=== PATIENT | female | born 1985 | race Caucasian/White ===

== ENCOUNTER 2020-08-07 07:44 | Emergency (ER) | payer OTHER, SELFPAY ==
[2020-08-07 07:45] VITALS: BP 122/78; PULSE 103; RESP 20; TEMP 36.6; O2SAT 98; BMI 25.5
--- NOTE | 2020-08-07 08:03 | ED.DCSUM_ITS ---
History of Present Illness Chief Complaint: Headache Informant: Patient Onset: Month(s) Context: Gradual Timing: Continuous, Waxes and wanes Quality: Throbbing Location: Left side Current Severity: Severe Maximum Severity: Severe Associated Symptoms: Nausea, Sinus Pressure, Photophobia, - - Sonophobia. Negative for: Fever, Vomiting, Sore Throat, Numbness, Tingling, Preceding Aura, Visual Changes, Blurred Vision, Visual Loss Injury: - - History of trauma Narrative: Patient is a 35-year-old woman who was treated for sinusitis. She initially was placed on Augmentin and just completed a 3-week course of levofloxacin. She had a CT of the head/sinuses in May which revealed minimal thickening of the sphenoid, ethmoid and maxillary sinuses. There is no air-fluid levels noted. The headache is not positional. She states she initially had fevers. She has not had fevers or chills in greater than a month. She denies history of migraine headaches. Her maternal grandmother had migraine headaches. She denies double vision, blurred vision or loss of vision. She denies ringing in ears or decreased hearing. She denies sore throat. She denies neck pain or stiffness. She does report nausea without vomiting or diarrhea. She denies myalgias or arthralgias. She denies trouble with balance. She denies paresthesia, anesthesia or motor weakness upper or lower extremity. Prior similar symptoms: Yes Recent Illness/Hospitalization: Yes - Past Medical History (1) No significant past medical history Status: Acute Past Medical History - Allergies and Home Meds Allergies/Adverse Reactions: Allergies latex Allergy (Verified 08/07/20 07:44) Swelling Primary Care Physician: Murray Chisholm MD [Primary Care Provider] - Prior records reviewed: Yes Surgical History: noncontributory Lives: Spouse/ Significant Other Smoking Status: Former smoker Alcohol: Rare Drugs: None Review of Systems General: Reports: Malaise. Denies: Chills, Fever, Subjective, Sweats Eyes: Reports: - - Reports photophobia. Denies: Visual changes - bilaterally, Blurred Vision - bilaterally, Diplopia ENT: Reports: - - Reports sonophobia. Denies: Bilateral ear pain, Rhinorrhea, Sore throat Cardiovascular: Denies: Chest pain, Palpitations Respiratory: Denies: Dyspnea, Cough, Dyspnea on exertion Gastrointestinal: Reports: Nausea. Denies: Abdominal pain, Vomiting, Diarrhea, Constipation, Melena, Hematochezia, -, - Genitourinary: Denies: Dysuria, Hematuria, Frequency Musculoskeletal: Denies: Myalgias, Arthralgias, Neck pain, Back pain, Swelling, Extremity Pain, -, - Skin: Denies: Rash, Wounds Neurological: Reports: Headache. Denies: Parasthesia, Numbness Endocrine: Denies: Polyuria, Polydipsia Physical Exam Vital Signs/Narrative: Vital Signs Temp Pulse Resp BP Pulse Ox 08/07/20 07:45 97.8 F 103 H 20 H 122/78 H 98 Inital Vital Signs reviewed: Yes General: Well nourished, Well developed Head: NC, AT. Negative for: Trauma, Tenderness, Temporary Artery Tenderness, Vesicular Rash, Sinus Tenderness Eyes: Perrl, EOMI, - - Is no APD. Fundi are unremarkable.. Negative for: Pale conjunctiva, Scleral icterus ENT: Moist mucous membranes, No rhinorrhea, TM's clear. Negative for: Sinus tenderness Neck: Supple, No Lymphadenopathy, No JVD, Nontender, No Meningismus. Negative for: Paraspinal Tenderness Cardiovascular: Regular rate, Regular rhythm, No murmurs, Normal S1, Normal S2 Respiratory: No distress, CTA bilaterally, Chest nontender Abdomen: Soft, Nontender, Nondistended, Normal bowel sounds Extremities: Nontender, No edema Skin: Normal color, No rash, No Trauma. Negative for: Cyanosis, Diaphoresis, Jaundice Neuro: Alert, Oriented x3, Cranial nerves II-XII grossly intact, Normal Strength, Normal Sensation, Normal DTR, Normal Gait Psychological: Normal affect, Normal Mood Diagnostic/Tx/Re-eval - Medical Decision Making With complaint of throbbing unilateral headache with sonophobia, photophobia and nausea suspect patient has migraine/vascular headache. Reviewed report of CAT scan. The CAT scan is essentially nondiagnostic. She has no tenderness over the frontal, ethmoid or maxillary sinuses. Patient was treated with IV Toradol, Benadryl and Reglan. Since she had a recent CAT scan there is no indication for repeat CAT scan. Patient was reassessed her headache has essentially resolved. She does know Dr. Cabezas. Recommended follow-up with Dr. Cabezas. 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 ED Disposition - Plan for ED Patient: Disposition: Home or Assisted Living Diagnosis: Headache, migraine, intractable, with status migrainosus Instructions: ED, Migraine (Classical) Prescriptions: Metoclopramide [Reglan] 10 mg PO UD PRN #10 tab PRN Reason: Headache Transmission Status: Pending to [facility]/pharmacy #[id number] Referrals: Murray Chisholm MD [Primary Care Provider] - Additional Instructions: Take either 4 ibuprofen every 8 hours for the next 24 to 48 hours or 2 Aleve every 12 hours for the next 24 to 48 hours. If you develop a recurrence of the throbbing headache with light sensitivity and sound sensitivity take 1 Reglan tablet. Also take 4 Advil tablets and 125 mg Benadryl tablet.
[2020-08-07] MEDS: Ketorolac 15 MG/ML Vial IV (08:22)
[2020-08-07] MEDS: DiphenhydrAMINE 50 MG/ML Syringe 25 MG IV (08:22)
[2020-08-07] MEDS: Metoclopramide 10 MG/2 ML Vial IV (08:22)
[2020-08-07 09:34] VITALS: BP 121/63; PULSE 52; RESP 16; O2SAT 97
== END 2020-08-07 09:34 | disposition home or self-care (01) ==
PROVIDERS: Emergency Provider Emergency Medicine; PCP Family Medicine
DX: G43.911 Migraine, unspecified, intractable, with status migrainosus (principal); Z87.891 Personal history of nicotine dependence
CPT/HCPCS: 96374; 96375; 99283; A4216

== ENCOUNTER 2020-09-12 17:12 | Emergency (ER) | payer OTHER, SELFPAY ==
[2020-09-12] VITALS (9 sets, daily range): BP systolic 110–137; BP diastolic 69–93; PULSE 79–116; RESP 14–18; TEMP 36.8–36.9; O2SAT 98–100; BMI 26.3; BMI 27.5
--- NOTE | 2020-09-12 17:14 | ED.RN ---
pt presents to triage with s/o. S/O states pt can't speak and has left sided facial droop. RN ask pt name and birthday and pt answers appropriately. Pt also has negative [place] scale for RN. Pt states she has had migraines daily for the last couple months without any prescription medications for relief. RN begins to triage pt and patient is unable to give correct SSN and starts having s/o answer questions for her. RN walked pt back to exam room. Dr Olivera notified at this time of patient's symptoms.
--- NOTE | 2020-09-12 17:25 | ED.RN ---
PROVIDER INFORMED NO NEW ORDERS GIVEN.
--- NOTE | 2020-09-12 17:38 | EKG12_ITS ---
Test Reason : STROKE Blood Pressure : / mmHG Vent. Rate : 107 BPM Atrial Rate : 107 BPM P-R Int : 140 ms QRS Dur : 082 ms QT Int : 336 ms P-R-T Axes : 067 068 034 degrees QTc Int : 448 ms Sinus tachycardia Otherwise normal ECG Confirmed by CLAUDETTE DYKES, BRIA ([id number]), editor & co founder HUMBERTO PHILIP ([id number]) on 09/14/2020 8:16:44 AM Referred By: DIPTI Confirmed By:BRET WILKINS MD
--- NOTE | 2020-09-12 17:39 | CT_ITS ---
We are attempting to reach an attending provider to discuss findings. An addendum with communication details will be sent when the communication is complete. EXAMINATION : Head CT w/out contrast HISTORY : Stroke COMPARISON : None. TECHNIQUE : Multiple contiguous axial images were obtained from the skull base to the vertex without intravenous contrast. A radiation dose optimization technique was used for this scan. FINDINGS : The ventricles and sulci are normal in size. There is no evidence for acute intracranial hemorrhage, mass effect, or midline shift. There is no extra-axial fluid collection. There is normal manuel-white differentiation, without CT evidence of acute ischemia or infarct. The skull base and calvarium are unremarkable. The orbits are unremarkable. The paranasal sinuses are clear. The mastoid air cells are well-aerated. The soft tissues are unremarkable. CT/STROKE Brain/Head without Cont IMPRESSION: No acute intracranial abnormality. Electronically Signed: Rhys Ralph MD at 17:54 EDT Tel , Service support ,
--- NOTE | 2020-09-12 17:39 | NURSING ---
[id number] STROKE ALERT CALLED
--- NOTE | 2020-09-12 17:40 | ED.RN ---
PT ANSWERED THIS RN'S QUESTION CLEARLY AND APPROPRIATE, HOWEVER WHEN ASKED TO REPEAT NO IF AND'S OR BUTS, FIFTY FIFTY, MAMA, TIP TOP, HUCKLEBERRY, BASEBALL PT UNABLE TO REPEAT SOME OF THESE WORD. PT MUMBLES, SLURS AND SAYS THE WRONG WORDS. TIME FRAME OF ON SET CONFUSING AND UNCLEAR.
--- NOTE | 2020-09-12 17:41 | NURSING ---
NO OLD EKGS
--- NOTE | 2020-09-12 17:43 | CM.ED ---
Social Work Responding to stroke alert. Patient spouse present. Support provided. Patient has a three year old daughter that is currently in a safe place per patient spouse. Will continue to follow as needed. Myra LATHAM, TISH
--- NOTE | 2020-09-12 17:45 | NURSING ---
[id number] STROKE ALERT CALLED
[2020-09-12 17:53] LABS: Absolute Lymphocyte Count 2.06 X10^3/uL (0.83-4.51); Absolute Neutrophil Count 6.1 X10^3/uL (2.0-7.7); Basophil# 0.05 X10^3/uL; Basophil% 0.5 % (0-1); Eosinophil# 0.25 X10^3/uL; Eosinophils% 2.7 % (0-5); Hematocrit 40.7 % (37-47); Hemoglobin 13.9 g/dL (12.0-15.0); Lymphocyte # 2.06 X10^3/ul (0.83-4.51); Mean Corp Hgb Conc 34.2 g/dL (32-36); Mean Corpuscular Hgb 30.7 pg (27.0-32.0); Mean Corpuscular Volume 89.8 fL (81-99); Mean Platelet Vol. 8.6 fl (6.2-12.0); Monocyte# 0.86 X10^3/uL; Monocyte% 9.2 % (0-10); NRBC Flagged by Analyzer 0 % (0-5); Neutrophil # 6.11 X10^3/uL (2.7-7.7); Neutrophil % 65.3 % (47-70); Platelet Count 304 K/mm3 (150-450); RBC Distribution Width CV 12.2 % (11.6-14.6); RBC Distribution Width SD 40.3 fl (35.1-43.9); Red Blood Count 4.53 M/mm3 (4.2-5.4); White Blood Count 9.4 K/mm3 (4.4-11.0)
[2020-09-12 18:08] LABS: Anion Gap 8 (5-15); BUN 14 mg/dL (7-18); BUN/Creat Ratio 14.5 RATIO (10-20); Calcium,Total 9.2 mg/dL (8.5-10.1); Chloride 102 mmol/L (98-107); Creatinine, Serum 0.96 mg/dL (0.55-1.02); EST Glomerular Filtration Rate 70 mL/min (>60); Est Glom Filt Rate - Afr Amer 85 mL/min (>60); Glucose 104 mg/dL (74-106); Potassium 3.3 mmol/L (3.5-5.1); Sodium Level 136 mmol/L (136-145)
--- NOTE | 2020-09-12 18:10 | RAD_ITS ---
STUDY: X-RAY CHEST REASON FOR EXAM: Female, 35 years old. Neuro deficit, acute, stroke suspected TECHNIQUE: AP portable COMPARISON: 02/03/2014 FINDINGS: The lungs are clear and expanded. There is no demonstrated pleural abnormality. Normal size heart. Normal mediastinum and kenji. Normal visualized pulmonary arteries. Normal visualized aortic arch and descending thoracic aorta. Normal visualized thoracic spine. Normal visualized ribs, clavicles, and shoulders. There is no demonstrated abnormality of the visualized soft tissue structures of the upper abdomen. No change since prior exam RAD/Chest 1 View IMPRESSION: Normal x-ray examination of the chest. Electronically Signed: Sky Thacker MD at 18:27 EDT , Service support ,
[2020-09-12 18:11] LABS: Prothrombin Time (Protime)PT. 12.5 SECONDS (11.7-14.9)
[2020-09-12 18:12] LABS: Partial Thromboplast Time 25.2 Seconds (24.1-36.2)
[2020-09-12 18:16] LABS: Bedside Glucose 95 mg/dL (70-110)
[2020-09-12 18:37] LABS: Thyroid Stim Hormone (TSH) 1.32 uIU/mL (0.358-3.74)
--- NOTE | 2020-09-12 19:14 | PCM.HP.STD ---
History of Present Illness Date of Admission: 09/12/20 Chief Complaint: Migraines, aphasia, LUE paresthesias, dizziness. The patient is a 35 y/o F w/ PMHx: Allergic Rhinitis, Asthma who presents to the [facility] ED on 09/12/20 with history of frequent onset of migraines (generalized headache), over the last month although not upon current presentation in addition to intermittent fevers subjectively without checking her temperature with onset of expressive aphasia as well as left upper extremity paresthesias 15:30 sudden onset symptoms with paresthesias and aphasia versus dysarthria (can speak in full sentences but occasionally uses the wrong words or choppy speech) with resolved paresthesias, LIZAMA but ongoing speech alterations. Check COVID no neck stiffness or meningismus Migraines, aphasia, LUE paresthesias, dizziness. Work-up in the ED included T 98.4, heart rate initially 116, BP 135/69, respiratory rate 16, on her percent on room air, CBC with WC 9.4, hemoglobin 13.9, platelet 304 without marked shift, unremarkable coags, BMP with potassium 3.3 otherwise not marked appearing, troponin less than 0.015, TSH 1.32, chest x-ray with no acute cardiopulmonary findings, CT of the brain with no acute intracranial abnormality, EKG []. Patient symptoms telemetry stroke call with [facility] performed with concern for possible meningitis, tumor or possibly complex migraine with recommended following recent noted work-up above admission with MRI of the brain as well as MRA of the head neck as well as LP. New onset migraines, expressive aphasia, left upper extremity paresthesias with fever concerning for possible meningitis (lower suspicion), tumor or complex migraine: MRI brain with and without as well as MRA neck and LP If onset fevers during admission would initiate rocephin 2 g IV every 12 as well as vancomycin 50 mg/kg IV every 12 with request to infectious disease pending lumbar puncture results. Past Medical History Allergies latex Allergy (Verified 09/12/20 17:25) Swelling Home Medications: Ambulatory Orders Medication Instructions Recorded Albuterol Inhaler [Ventolin Hfa] 1 - 2 puff INHALATION Q4H PRN PRN 10/15/13 Fexofenadine HCl [Krissy Allergy] 180 mg PO PRN PRN 01/28/17 Fluticasone 0.05% [Flonase Nasal 1 spray NASAL DAILY 01/28/17 [place]] Surgical History: noncontributory Smoking Status: Never smoker - Physical Exam Vitals/I&O's: Vital Signs Temp Pulse Resp BP Pulse Ox 98.3 F 103 H 16 110/77 99 09/12/20 17:31 09/12/20 18:30 09/12/20 18:30 09/12/20 18:30 09/12/20 18:30 Oxygen Delivery Method Room Air Weight: 165 lb 9.074 oz Body Mass Index (BMI) 27.5 Finger Stick Blood Glucose 95 Laboratory Results 09/12/20 17:33: WBC 9.4, RBC 4.53, Hgb 13.9, Hct 40.7, MCV 89.8, MCH 30.7, MCHC 34.2, RDW Std Deviation 40.3, RDW Coeff of Ziggy 12.2, Plt Count 304, MPV 8.6, Immature Gran % (Auto) 0.300, Neut % (Auto) 65.3, Lymph % (Auto) 22.0, [place] % (Auto) 9.2, Eos % (Auto) 2.7, Baso % (Auto) 0.5, Absolute Neuts (auto) 6.1, Absolute Lymphs (auto) 2.06, Nucleated RBC % 0 09/12/20 17:33: PT 12.5, INR 1.0, APTT 25.2 09/12/20 17:33: Sodium 136, Potassium 3.3 L, Chloride 102, Carbon Dioxide 26.0, Anion Gap 8, BUN 14, Creatinine 0.96, Estim Creat Clear Calc 74.30, Est GFR (MDRD) Af Amer 85, Est GFR (MDRD) Non-Af 70, BUN/Creatinine Ratio 14.5, Glucose 104, Calcium 9.2, Troponin I < 0.015 09/12/20 17:33: TSH 1.32 09/12/20 17:55: POC Glucose 95 Current Medications Labetalol HCl (Labetalol (Prefilled) 20 Mg/4 Ml) 20 mg IV X1 PRN PRN Reason: BLOOD PRESSURE Assessment/Plan All Active Problems No significant past medical history (Acute) delivery, delivered, current hospitalization (Acute)
--- NOTE | 2020-09-12 19:38 | ED.VIS.STROK ---
History of Present Illness Chief Complaint: Neuro S/Sx Narrative: Patient presenting for evaluation secondary to difficulty speaking and numbness. Patient is otherwise healthy, she has a recent history of developing intermittent headaches. She states that these headaches will come and go over the course of the last month or so. She states that intermittently they have been associated with neurologic signs and symptoms. She states that they occasionally will be associated with feelings of numbness. Patient states that however today at about 1530 she had an onset of 1 of these headaches and was associated with difficulty speaking. Patient significant other corroborates this, and states that her speech is not normal. Patient states that the headache is generalized was not thunderclap. Patient reports some shopping is in her speech and word finding difficulties occasionally. She also states that she has some numbness to the right side of her face and her right arm. She denies any weakness. She denies visual field cuts. Review of systems otherwise negative. Past Medical History - Allergies and Home Meds Allergies/Adverse Reactions: Allergies latex Allergy (Verified 09/12/20 17:25) Swelling Primary Care Physician: Murray Chisholm MD [Primary Care Provider] - Past Medical History: None Surgical History: noncontributory Lives: Spouse/ Significant Other Smoking Status: Never smoker Alcohol: None Drugs: None Review of Systems All systems negative except as indicated General: Denies: Chills, Fever, Sweats Eyes: Denies: Visual changes - bilaterally, Diplopia ENT: Denies: Rhinorrhea, Sore throat Cardiovascular: Denies: Chest pain, Palpitations Respiratory: Denies: Dyspnea, Cough, Dyspnea on exertion Gastrointestinal: Denies: Abdominal pain, Nausea, Vomiting, Diarrhea, Melena, Hematochezia Genitourinary: Denies: Dysuria, Hematuria, Frequency Musculoskeletal: Denies: Back pain, Extremity Pain Skin: Denies: Rash, Wounds Neurological: Reports: Parasthesia, - - Speech difficulty STROKE Vital Signs/Narrative: Vital Signs Temp Pulse Resp BP Pulse Ox 09/12/20 18:30 103 H 16 110/77 99 09/12/20 18:07 79 18 133/71 H 98 09/12/20 17:47 102 H 17 122/81 H 100 09/12/20 17:31 98.3 F 09/12/20 17:18 98.4 F 116 H 16 135/69 H 100 Inital Vital Signs reviewed: Yes General: Well nourished, Well developed Head: Normocephalic, Atraumatic Eyes: Perrl, EOMI ENT: Moist mucous membranes, No rhinorrhea Neck: Supple, Nontender Cardiovascular: Regular rate, Regular rhythm, No murmurs Respiratory: No distress, CTA bilaterally, Chest nontender Abdomen: Soft, Nontender, Nondistended, Normal bowel sounds Back: Nontender, Normal Inspection Extremities: Nontender, No edema Skin: Normal color, No rash Neurological: Alert, Oriented x3, Cranial nerves II-XII grossly intact, Normal Strength, Normal Sensation, - - Patient's speech is in complete sentences, she occasionally says the wrong words, and it does seem mildly fragmented. I give her 1 point for dysarthria. She does not appear to be aphasic. Psychological: Normal affect Diagnostic/Tx/Re-eval Chest X-Ray - ED: 1 View, Read by ED Physician, Normal - Medical Decision Making Stroke Team Activated: Yes IV Alteplase (t-PA) Administered: No Patient presented secondary to abnormal neurologic findings. Patient's neurologic exam and history were a little bit more difficult to tease, as there was some initial delay in activation of the stroke team as the patient really required a very full history and physical to determine her time of onset and her symptoms. Stroke team was ultimately activated, CT imaging of the brain per radiology was negative. Chest x-ray by my personal review was negative. CBC chemistry TSH found to be unremarkable. EKG on the patient shows a sinus tachycardia with a rate of [address] segments normal T waves no evidence of acute ischemia or arrhythmia. Patient was evaluated by the stroke neurologist with myself at the bedside, and we are in agreement that the patient does have some rather abnormal findings but she does not meet TPA criteria. Stroke neurologist recommended inpatient work-up including MRI with contrast and plus or minus lumbar puncture. Patient has a completely normal CBC with no leukocytosis or shift and no meningismus I do not feel that this is a presentation of encephalitis or meningitis and I do not feel that emergency department lumbar puncture is indicated. Patient will be admitted under the hospitalist for further work-up. Critical care time (excluding procedures): 30-74 minutes ED Disposition - Plan for ED Patient: Disposition: Acute Care Hospital [facility] Diagnosis: Dysarthria
--- NOTE | 2020-09-12 19:53 | ED.RN ---
REPEAT NIH PERFORMED, PT INFORMED OF ADMISSION TO [facility]. 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 PT REQUESTING TO BE TRANSFERRED TO [facility] FOR INSURANCE PURPOSES. [employer] ASKED TO LOOK INTO INSURANCE SITUATION. DR. HORNER INFORMED OF PT'S DESIRE TO BE TRANSFERRED.
== END 2020-09-12 21:29 | disposition short-term general hospital (02) ==
PROVIDERS: Emergency Provider Emergency Medicine; PCP Family Medicine
DX: R47.1 Dysarthria and anarthria (principal); R20.0 Anesthesia of skin; R20.2 Paresthesia of skin
CPT/HCPCS: 70450; 71045; 80048; 82962; 84443; 84484; 85025; 85610; 85730; 87635; 93005; 99285; A4216; U0002

== ENCOUNTER 2020-12-08 09:08 | Emergency (ER) | payer OTHER, SELFPAY ==
[2020-09-12 17:53] VITALS: BMI 27.5
[2020-12-08 09:09] VITALS: BP 102/66; PULSE 102; RESP 16; TEMP 36.5; O2SAT 98; BMI 24.1
[2020-12-08] MEDS: 0.9% Normal Saline 1,000 ML 999 ML IV (09:54)
[2020-12-08] MEDS: Ketorolac 15 MG/ML Vial IV (09:54)
[2020-12-08] MEDS: proCHLORPERazine 10 MG/2 ML Vial IV (09:55)
[2020-12-08] MEDS: DiphenhydrAMINE 50 MG/ML Syringe 25 MG IV (09:56)
--- NOTE | 2020-12-08 11:07 | EX.ED.VIS.HA ---
HPI History of Present Illness Chief Complaint: Headache Narrative Narrative: Patient presenting for evaluation secondary to a migraine headache. Patient has an underlying history of migraine headaches that have been ongoing since May of this year. She is supposed to be on propanolol for prevention, but recently trialed herself off of that, and today woke up with a migraine. This was not sudden onset or thunderclap, it is a generalized throbbing headache associated with some photophobia and nausea. No neck stiffness, no fevers, no skin rashes, no visual changes numbness or weakness. She did take a triptan at home which did not seem to alleviate her pain so she presented to the emergency department. [facility] Medical History Asthma Migraines Home Medications albuterol sulfate [Ventolin HFA] 1 - 2 puff INHALATION Q4H PRN PRN 10/15/13 [History Last Taken Unknown] fexofenadine [Krissy Allergy] 180 mg PO PRN PRN 01/28/17 [History Last Taken 03/03/17 08:00] fluticasone propionate 1 spray NASAL DAILY 01/28/17 [History Last Taken 03/03/17 08:00] mometasone [Asmanex Twisthaler] 1 inh INHALATION DAILY 12/08/20 [History Last Taken Unknown] propranolol 60 mg PO DAILY 12/08/20 [History Last Taken Unknown] Allergy/AdvReac Type Severity Reaction Status Date / Time latex Allergy Swelling Verified 09/12/20 17:25 Social History Smoking Status: Never smoker ROS ROS ED Constitutional Constitutional ED: Denies chills, fever(s), sweats or weight loss Eyes Eyes: Reports other Details: Positive for photophobia ; Denies blurry vision, change in vision, diplopia or photophobia ENT ENT ED: Denies ear pain, neck pain, rhinorrhea or sore throat Cardiovascular Cardiovascular: Denies chest pain Respiratory/Chest Respiratory/Chest: Denies cough or dyspnea Gastrointestinal Gastrointestinal: Reports nausea; Denies abdominal pain or vomiting Musculoskeletal Musculoskeletal: Denies arthralgias, myalgias or neck pain Integumentary Reports other Details: No petechia ; Denies rash Neurologic Neurologic: Reports headache(s); Denies paresthesias or weakness Psychiatric Psychiatric: Reports other Details: No history of IV drug abuse ; Denies depression Hematologic/Lymphatic Hematologic/Lymphatic: Denies easy bleeding or easy bruising Allergic/Immunologic Allergic/Immunologic ED: Reports other Details: No immunosuppression EXAM Physical Exam Const Vital Signs: 12/08/20 09:09 Temperature 97.7 F L Temperature Source Temporal Pulse Rate 102 H Respiratory Rate 16 Blood Pressure 102/66 Blood Pressure Mean 78 Pulse Ox 98 Oxygen Delivery Method Room Air Positive well nourished and well developed General Appearance ED: well developed and NAD HEENT Reports normocephalic HEENT Narrative: No mastoid tenderness atraumatic; Negative for temporal artery tenderness or vesicular rash Face and Sinus: Negative for sinus tenderness Eyes PERRL and EOMs intact bilaterally Eyes Narrative: Funduscopy was limited by photophobia Direct Ophthalmoscopy: No papilledema and No retinal abnormality Neck no lymphadenopathy, supple and no meningeal signs Resp normal respiratory effort and clear to auscultation bilaterally Cardio regular rate, regular rhythm, no murmurs and peripheral pulses 2+ throughout GI non-tender and non-distended Palpation: soft Extremity normal to inspection and full ROM Neuro oriented x3, CN's II-XII intact bilaterally and no sensory deficits noted Sensorium / Orientation: awake and alert Meningeal Signs: no meningeal signs Speech: speech normal Motor Exam: strength 5/5 throughout Psych mental status grossly normal Skin General Skin Exam: Negative for petechiae Lesions: no lesions Rashes: no rashes MDM MDM MDM Narrative Medical decision making narrative: Patient presented with migraine headache, no red flag signs or symptoms no indication for neuroimaging. IV was established patient was given Compazine Benadryl Toradol and a liter of saline. Repeat evaluation of the patient at 1115 shows her to have significant improvement of her headache. I do believe that she requires admission or further observation. Patient was discharged in improved condition. Discharge Plan Triage Chief Complaint: Headache ED Provider: Thong Walker Dx/Rx/DC Orders Clinical Impression: Headache, migraine Instructions: ED, Migraine (Classical) Prescriptions: No Action albuterol sulfate [Ventolin HFA] 1 INHALER inhaler 1 - 2 puff inhalation Q4H PRN PRN (Reason: Shortness Of Breath) RF: 0 fexofenadine [Krissy Allergy] 180 MG tablet 180 mg PO PRN PRN (Reason: Allergies) RF: 0 fluticasone propionate 1 SPRAY spray,suspension 1 spray NASAL DAILY RF: 0 propranolol 60 mg capsule,extended release 24 hr 60 mg PO DAILY RF: 0 Asmanex Twisthaler 220 mcg/ actuation (30) aerosol powdr breath activated 1 inh INHALATION DAILY RF: 0 Primary Care Provider: Murray Chisholm Referrals: Murray Chisholm MD [Primary Care Provider] - As Needed Disposition Disposition: Home, Self Care
[2020-12-08 11:26] VITALS: BP 91/62; RESP 16
== END 2020-12-08 11:30 | disposition home or self-care (01) ==
PROVIDERS: Emergency Provider Emergency Medicine; PCP Family Medicine
DX: G43.909 Migraine, unspecified, not intractable, without status migrainosus (principal)
CPT/HCPCS: 96361; 96374; 96375; 99284; J7030; A4216

== ENCOUNTER 2021-02-21 10:01 | Emergency (ER) | payer OTHER, SELFPAY ==
[2021-02-21 10:05] VITALS: BP 110/75; PULSE 86; RESP 18; TEMP 36.7; O2SAT 99; BMI 29.2
--- NOTE | 2021-02-21 10:26 | CT_ITS ---
STUDY: CT BRAIN WITHOUT CONTRAST REASON FOR EXAM: Female, 36 years old. headache, altered mental status RADIATION DOSAGE (If Supplied By Facility): CTDIvol = ( 44.99 ) mGy, DLP = ( 745.49 ) mGycm TECHNIQUE: Transaxial CT imaging of the brain was performed without administration of intravenous contrast material. Individualized dose optimization techniques were used for this CT. COMPARISON: No relevant priors. FINDINGS: Normal size ventricles and extra-axial spaces for the patient''s age. Normal white matter tracts of the cerebral hemispheres. There is no intracranial hemorrhage. There are no findings of an acute ischemic infarction. Normal visualized paranasal sinuses. CT/Brain/Head without Contrast IMPRESSION: Unremarkable unenhanced CT scan of the brain. Electronically Signed: Marjan Bello MD at 11:17 EDT Tel , Service support ,
--- NOTE | 2021-02-21 10:27 | EKG12_ITS ---
Test Reason : SYNCOPE Blood Pressure : / mmHG Vent. Rate : 080 BPM Atrial Rate : 080 BPM P-R Int : 162 ms QRS Dur : 076 ms QT Int : 348 ms P-R-T Axes : 040 047 035 degrees QTc Int : 401 ms Normal sinus rhythm Normal ECG Confirmed by POPEYE DYKES, JESICA ([id number]), advertising editor HUMBERTO PHILIP ([id number]) on 02/25/2021 7:56:32 AM Referred By: BB Confirmed By:JESICA NYE MD
--- NOTE | 2021-02-21 10:31 | EX.ED.DYSGE1 ---
HPI History of Present Illness Chief Complaint: Confusion Informant: patient, EMS and other Narrative Narrative: Patient had an episode of confusion today. She has been having these episodes daily for several months. She was at work when this happened. 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 When she was approached she was unable to speak anything other than mumbling. Later she seemed to be completely aphasic and not able to talk at all, she was clenching her right fist and unable to move her left arm. Given this and the fact that it seemed to be persistent, EMS was called. They checked her blood sugar it was in the 60s, and they transported her here, now she is asymptomatic. She states she feels fine, and she is amnestic to the entire event and had no prodromal symptoms at all. Office staff has seen prior episodes of the patient rummaging through drawers, seemingly disoriented and it is transient. She is amnestic to all of these episodes. There have been no witnessed convulsions but they have witnessed multiple episodes of this over the past several weeks. She has a history of migraines, she states she gets migraines daily as well, she was switched from Topamax to propranolol about 2 months ago by her neurologist at [facility], she states she was having these episodes prior to that medication adjustment. She does know drugs. Her who is nonmedical has seen these episodes as well, he is not here or reachable at this time. Patient has been immunized/vaccinated against COVID-19 previously/remotely. She denies any recent head injury. She thinks she had a normal MRI at [facility] this past summer, within the last several months but she really cannot remember. [facility] Medical History Asthma Migraines Home Medications albuterol sulfate [Ventolin HFA] 1 - 2 puff INHALATION Q4H PRN PRN 10/15/13 [History Last Taken Unknown] fexofenadine [Krissy Allergy] 180 mg PO PRN PRN 01/28/17 [History Last Taken 03/03/17 08:00] fluticasone propionate 1 spray NASAL DAILY 01/28/17 [History Last Taken 03/03/17 08:00] mometasone [Asmanex Twisthaler] 1 inh INHALATION DAILY 12/08/20 [History Last Taken Unknown] propranolol 60 mg PO DAILY 12/08/20 [History Last Taken Unknown] medroxyprogesterone 10 mg PO DAILY 02/21/21 [History Last Taken Unknown] Allergy/AdvReac Type Severity Reaction Status Date / Time latex Allergy Swelling Verified 02/21/21 10:13 Surgical History Hx of appendectomy Social History Smoking Status: Never smoker ROS ROS ED Constitutional Constitutional ED: Denies chills or fever(s) Eyes Eyes: Denies change in vision or diplopia ENT ENT ED: Denies rhinorrhea or sore throat Cardiovascular Cardiovascular: Denies chest pain or palpitations Respiratory/Chest Respiratory/Chest: Denies cough or dyspnea Gastrointestinal Gastrointestinal: Denies abdominal pain, diarrhea, nausea or vomiting Genitourinary Genitourinary ED: Denies dysuria or hematuria Musculoskeletal Musculoskeletal: Denies back pain or neck pain Integumentary Denies abscess or rash Neurologic Neurologic: Reports as per HPI, abnormal speech, confusion and headache(s); Denies paresthesias or weakness Psychiatric Psychiatric: Denies anxiety or suicidal thoughts EXAM Physical Exam Const Vital Signs: 02/21/21 10:05 02/21/21 12:30 02/21/21 15:02 Temperature 98.1 F Temperature Source Oral Pulse Rate 86 79 81 Respiratory Rate 18 17 16 Blood Pressure 110/75 118/91 H 125/87 H Blood Pressure Mean 86 100 99 Pulse Ox 99 100 98 Oxygen Delivery Method Room Air Room Air Room Air Positive well nourished and well developed General Appearance ED: well developed and NAD HEENT Reports moist mucous membranes normocephalic and atraumatic Eyes PERRL and EOMs intact bilaterally Neck full ROM and supple Resp normal respiratory effort and clear to auscultation bilaterally Cardio regular rate, regular rhythm and no murmurs GI non-tender and non-distended Auscultation: normoactive bowel sounds Palpation: soft Back/Spine no CVA tenderness General Back: other FROM Extremity normal to inspection General Extremety ED: Negative for edema, pulses abnormal or tenderness General Extremity: Negative for edema or pulses abnormal Neuro oriented x3, CN's II-XII intact bilaterally and no sensory deficits noted Neuro Narrative: Normal DTRs. No clonus. Normal neurologic exam. No aphasia or dysarthria. NIHSS 0. Sensorium / Orientation: awake and alert Motor Exam: strength 5/5 throughout Skin no rashes or lesions noted and no wounds MDM MDM MDM Narrative Medical decision making narrative: Other than developing in one of her migraines, the patient did not have any other episodes of lapses in consciousness or changes in her mental status or any focal neurologic symptoms while in the emergency department. As below her tests are unremarkable. I attempted to discuss with her neurologist Dr. Koko Pruett, however he is out of the office for the week and I talk to one of his colleagues Dr. Carlos Jacinto. He agrees with admitting the patient for MRI, EEG, and neurologic consultation but he does not see inpatients, so I called the [facility] transfer line to see if any of their hospitals had an available bed with these capabilities. I did speak with Dr. Quach with neurology who did accept the patient to [facility], and another other hospitals have any available beds, we will keep the patient here until they have an available bed for us to send her to at [facility]. The patient did develop a migraine, I treated her with Toradol and Reglan, this helped and she is feeling well and stable at this time. Lab Data Attestation: I reviewed the patient's lab results. Labs: Laboratory Results - last 24 hr 02/21/21 02/21/21 10:15 10:15 WBC 9.9 RBC 4.23 Hgb 13.3 Hct 39.1 MCV 92.4 MCH 31.4 MCHC 34.0 RDW Std Deviation 40.4 RDW Coeff of Ziggy 12.0 Plt Count 354 MPV 8.4 Immature Gran % (Auto) 1.000 H Neut % (Auto) 68.8 Lymph % (Auto) 17.8 L [place] % (Auto) 9.9 Eos % (Auto) 1.9 Baso % (Auto) 0.6 Absolute Neuts (auto) 6.8 Absolute Lymphs (auto) 1.76 Nucleated RBC % 0 Sodium 138 Potassium 4.3 Chloride 103 Carbon Dioxide 31.0 Anion Gap 4 L BUN 16 Creatinine 0.84 Estim Creat Clear Calc 84.11 Est GFR (MDRD) Af Amer 99 Est GFR (MDRD) Non-Af 81 BUN/Creatinine Ratio 18.9 Glucose 115 H Calcium 8.9 Total Bilirubin 0.60 AST 9 L ALT 14 Alkaline Phosphatase 73 Total Protein 7.6 Albumin 3.2 Globulin 4.4 H Albumin/Globulin Ratio 0.7 L Radiography Diagnostic Testing: Radiology Impression Brain CT 02/21/21 10:26 IMPRESSION: Unremarkable unenhanced CT scan of the brain. Electronically Signed: Marjan Bello MD at 11:17 EDT Tel , Service support , EKG Initial EKG: Attestation: I personally reviewed and interpreted this EKG as follows: Interpretation: Sinus Rhythm and No Acute Injury Pattern Comments: normal Discharge Plan Triage Chief Complaint: Confusion ED Provider: Adolfo Freeman Dx/Rx/DC Orders Clinical Impression: Awareness alteration, transient Prescriptions: No Action albuterol sulfate [Ventolin HFA] 1 INHALER inhaler 1 - 2 puff inhalation Q4H PRN PRN (Reason: Shortness Of Breath) RF: 0 fexofenadine [Krissy Allergy] 180 MG tablet 180 mg PO PRN PRN (Reason: Allergies) RF: 0 fluticasone propionate 1 SPRAY spray,suspension 1 spray NASAL DAILY RF: 0 propranolol 60 mg capsule,extended release 24 hr 60 mg PO DAILY RF: 0 Asmanex Twisthaler 220 mcg/ actuation (30) aerosol powdr breath activated 1 inh INHALATION DAILY RF: 0 medroxyprogesterone 10 mg tablet 10 mg PO DAILY RF: 0 Primary Care Provider: Murray Chisholm Referrals: Murray Chisholm MD [Primary Care Provider] - Disposition Disposition: Acute Care Hospital Discharge Location: [facility]
[2021-02-21 10:48] LABS: Absolute Lymphocyte Count 1.76 X10^3/uL (0.83-4.51); Absolute Neutrophil Count 6.8 X10^3/uL (2.0-7.7); Basophil# 0.06 X10^3/uL; Basophil% 0.6 % (0-1); Eosinophil# 0.19 X10^3/uL; Eosinophils% 1.9 % (0-5); Hematocrit 39.1 % (37-47); Hemoglobin 13.3 g/dL (12.0-15.0); Lymphocyte # 1.76 X10^3/ul (0.83-4.51); Lymphocyte % 17.8 % (19-41); Mean Corpuscular Hgb 31.4 pg (27.0-32.0); Mean Corpuscular Volume 92.4 fL (81-99); Mean Platelet Vol. 8.4 fl (6.2-12.0); Monocyte# 0.98 X10^3/uL; Monocyte% 9.9 % (0-10); NRBC Flagged by Analyzer 0 % (0-5); Neutrophil # 6.78 X10^3/uL (2.7-7.7); Neutrophil % 68.8 % (47-70); Platelet Count 354 K/mm3 (150-450); RBC Distribution Width SD 40.4 fl (35.1-43.9); Red Blood Count 4.23 M/mm3 (4.2-5.4); White Blood Count 9.9 K/mm3 (4.4-11.0)
[2021-02-21 10:52] LABS: ALB/GLOB Ratio 0.7 RATIO (0.9-2.4); AST(SGOT) 9 U/L (15-37); Alanine Aminotransfer ALT/SGPT 14 U/L (13-56); Albumin, Serum 3.2 g/dL (3.2-5.0); Alkaline Phosphatase 73 U/L (45-117); Anion Gap 4 (5-15); BUN 16 mg/dL (7-18); BUN/Creat Ratio 18.9 RATIO (10-20); Calcium,Total 8.9 mg/dL (8.5-10.1); Chloride 103 mmol/L (98-107); Creatinine, Serum 0.84 mg/dL (0.55-1.02); EST Glomerular Filtration Rate 81 mL/min (>60); Est Glom Filt Rate - Afr Amer 99 mL/min (>60); Estimated Creatinine Clearance 84.11 ml/min; Globulin 4.4 g/dL (2.2-4.2); Glucose 115 mg/dL (74-106); Potassium 4.3 mmol/L (3.5-5.1); Protein, Total 7.6 g/dL (6.4-8.2); Sodium Level 138 mmol/L (136-145)
[2021-02-21 12:30] VITALS: BP 118/91; PULSE 79; RESP 17; O2SAT 100
[2021-02-21] MEDS: Metoclopramide 10 MG/2 ML Vial 5 MG IV (14:57)
[2021-02-21] MEDS: Ketorolac 30 MG/ML Syringe IV (14:57)
[2021-02-21 15:02] VITALS: BP 125/87; PULSE 81; RESP 16; O2SAT 98
--- NOTE | 2021-02-21 18:11 | ED.RN ---
PER JOSHUA WITH [facility]; WE ARE STILL WAITING FOR A BED AT MAIN CAMPUS FOR THE PT. NO ESTIMATED TIME ON BED
--- NOTE | 2021-02-21 19:15 | HP.PCM.HOS_ITS ---
[facility] - General General Date of Service: 02/21/21 Chief Complaint: Confusion, numbness, presyncope HPI Narrative YAO MCCARTHY, is a 36 F who presents with above. She has past medical history of migraines, diagnosed in May this year, follows with a neurologist in [facility], who comes in with sudden onset of numbness, tingling, and confusion. She has history of daily headaches for which she is on propranolol. She used to be on Topamax. She has had frequent intermittent episodes of dizziness, numbness in both her fingertips and her mouth and has been confused. 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 Patient was reportedly in the office, getting ready to give immunotherapy when she was found at the back of the office pulling drawers, confused, unsure of which medication to pick. She was reportedly completely aphasic, clenching her right face and unable to move her left arm. Patient is amnestic of the event but admits to feeling numbness in her left hand. When the EMS got there, her blood sugar was found to be 69. Her vitals were stable. She has been vaccinated against COVID-19 infection. [facility] Medical History Asthma Migraines Home Medications albuterol sulfate [Ventolin HFA] 1 - 2 puff INHALATION Q4H PRN PRN 10/15/13 [History Last Taken Unknown] fexofenadine [Krissy Allergy] 180 mg PO PRN PRN 01/28/17 [History Last Taken 03/03/17 08:00] fluticasone propionate 1 spray NASAL DAILY 01/28/17 [History Last Taken 03/03/17 08:00] mometasone [Asmanex Twisthaler] 1 inh INHALATION DAILY 12/08/20 [History Last Taken Unknown] propranolol 60 mg PO DAILY 12/08/20 [History Last Taken Unknown] medroxyprogesterone 10 mg PO DAILY 02/21/21 [History Last Taken Unknown] Allergy/AdvReac Type Severity Reaction Status Date / Time latex Allergy Swelling Verified 02/21/21 10:13 Surgical History Hx of appendectomy Social History (Updated 02/21/21 @ 19:[address] Nel Gonzalez MD) household members: spouse Smoking Status: Never smoker alcohol intake: never substance use type: does not use ROS ROS Narrative Constitutional: Admits to fatigue Denies: Anorexia, Chills, Fever, Night Sweats, Weight Change Eyes: Denies: Blurred vision, Cataracts, Conjunctivae Inflammation, Pain, Redness, Vision Change HEENT: Denies: Difficulty Hearing, Difficulty Swallowing, Head Aches, Hearing Changes, Sinus Congestion, Sinus Drainage Cardiovascular: Admits to occasional dizziness denies: Chest Pain, Orthopnea, Palpitations Respiratory: Denies: Cough, Shortness of breath at rest, Sputum production Gastrointestinal: Denies: Abdominal Pain, Nausea, Vomiting Genitourinary: Denies: Dysuria Musculoskeletal: Denies: Joint Pain, Joint stiffness, Joint swelling, Joint Tenderness Skin: Denies: Rash, Wounds Neurological: See HPI Vital Signs Vital Signs Vital Signs: 02/21/21 10:05 02/21/21 12:30 02/21/21 15:02 Temperature 98.1 F Temperature Source Oral Pulse Rate 86 79 81 Respiratory Rate 18 17 16 Blood Pressure 110/75 118/91 H 125/87 H Blood Pressure Mean 86 100 99 Pulse Ox 99 100 98 Oxygen Delivery Method Room Air Room Air Room Air Weight Weight: 79.9 kg Body Mass Index (BMI) 29.2 Physical Exam Narrative Physical exam: General: Alert, Oriented x3, Cooperative, No apparent distress, Well developed HEENT: Atraumatic Oral: Moist Mucosa Neck: Supple Lungs: Clear to auscultation Cardiovascular: HS I+II, regular, no murmurs Abdomen: Bowel Sounds Present, Soft, Non Tender Extremities: No edema Skin: No rashes, No breakdown Neurological: Grossly intact Psych/Mental Status: Appropriate Results Lab / Micro Data Result Diagrams: 02/21/21 10:15 02/21/21 10:15 Labs: Laboratory Results - last 24 hr 02/21/21 10:15: WBC 9.9, RBC 4.23, Hgb 13.3, Hct 39.1, MCV 92.4, MCH 31.4, MCHC 34.0, RDW Std Deviation 40.4, RDW Coeff of Ziggy 12.0, Plt Count 354, MPV 8.4, Immature Gran % (Auto) 1.000 H, Neut % (Auto) 68.8, Lymph % (Auto) 17.8 L, [place] % (Auto) 9.9, Eos % (Auto) 1.9, Baso % (Auto) 0.6, Absolute Neuts (auto) 6.8, Absolute Lymphs (auto) 1.76, Nucleated RBC % 0 02/21/21 10:15: Sodium 138, Potassium 4.3, Chloride 103, Carbon Dioxide 31.0, Anion Gap 4 L, BUN 16, Creatinine 0.84, Estim Creat Clear Calc 84.11, Est GFR (MDRD) Af Amer 99, Est GFR (MDRD) Non-Af 81, BUN/Creatinine Ratio 18.9, Glucose 115 H, Calcium 8.9, Total Bilirubin 0.60, AST 9 L, ALT 14, Alkaline Phosphatase 73, Total Protein 7.6, Albumin 3.2, Globulin 4.4 H, Albumin/Globulin Ratio 0.7 L Micro: Microbiology 02/21/21 14:45 Nasal Secretion SARS-CoV-2 Antigen (Rapid) - Final Radiology Impression Brain CT 02/21/21 10:26 IMPRESSION: Unremarkable unenhanced CT scan of the brain. Electronically Signed: Marjan Bello MD at 11:17 EDT Tel , Service support , Assessment & Plan Assessment/Plan (1) Headache, migraine: QUALIFIERS: Intractability: not intractable Migraine type: unspecified Status migrainosus presence: without status migrainosus Qualified Code(s): G43.909 - Migraine, unspecified, not intractable, without status migrainosus PLAN: 1. Presyncope, recurrent episodes of dizziness with tingling and numbness, Concerning for Complex migraine versus seizure disorder Suspect patient may need 24-hour continuous EEG monitoring Discussed with the ED physician and recommended discussing with her primary neurologist in [facility] Should the patient not be accepted or unable to get a bed, will recommend SOC c onsult, EEG 2. Episode of hypoglycemia, blood sugar prior to hospital was 69, blood sugar here are 115 We will continue to monitor 3. Asthma, not in acute exacerbation, breathing treatments as needed Charges/Coding Visit Charges Inpatient E&M: 59829 Init Hosp L3
[2021-02-21 19:46] VITALS: BP 105/65
[2021-02-21 21:33] VITALS: BP 106/59; PULSE 107; RESP 20; O2SAT 97
[2021-02-21 22:43] VITALS: BP 106/59; PULSE 101; RESP 17; O2SAT 98
== END 2021-02-21 22:45 | disposition short-term general hospital (02) ==
PROVIDERS: Emergency Provider Emergency Medicine; PCP Family Medicine
DX: R40.4 Transient alteration of awareness (principal); J45.909 Unspecified asthma, uncomplicated; Z79.51 Long term (current) use of inhaled steroids; Z79.899 Other long term (current) drug therapy
CPT/HCPCS: 70450; 80053; 85025; 87426; 93005; 96374; 96375; 99285; A4216

== ENCOUNTER 2021-04-04 09:56 | Emergency (ER) | payer OTHER, SELFPAY ==
[2021-04-04 09:57] VITALS: BP 140/90; PULSE 75; RESP 20; TEMP 36.6; O2SAT 99; BMI 30.7
--- NOTE | 2021-04-04 11:18 | EDS_ITS ---
HPI History of Present Illness Chief Complaint: Nausea/Vomiting/Diarrhea Informant: patient Onset/Context/Timing Onset: Today Context: Gradual Onset Timing: Continuous Quality: Nausea, vomiting, diarrhea Location: Abdomen Worsened by: Certain positions Relieved by: Certain positions Narrative Narrative: Patient presents with nausea, vomiting, and diarrhea that began today. Patient states she woke up and started having nausea, vomiting, diarrhea. Patient denies any abdominal pain. Patient denies any melena or hematochezia. Patient denies any hematemesis or coffee-ground emesis. Patient denies any dysuria or hematuria. Patient admits to a cough but denies any sputum production. Patient states she feels better in certain positions and worse in other positions. [facility] Medical History Asthma Migraines Home Medications albuterol sulfate [Ventolin HFA] 1 - 2 puff INHALATION Q4H PRN PRN 10/15/13 [History Last Taken Unknown] fexofenadine [Krissy Allergy] 180 mg PO PRN PRN 01/28/17 [History Last Taken 03/03/17 08:00] fluticasone propionate 1 spray NASAL DAILY 01/28/17 [History Last Taken 03/03/17 08:00] mometasone [Asmanex Twisthaler] 1 inh INHALATION DAILY 12/08/20 [History Last Taken Unknown] propranolol 60 mg PO DAILY 12/08/20 [History Last Taken Unknown] medroxyprogesterone 10 mg PO DAILY 02/21/21 [History Last Taken Unknown] Allergy/AdvReac Type Severity Reaction Status Date / Time latex Allergy Swelling Verified 04/04/21 10:02 Surgical History Hx of appendectomy Social History household members: spouse Smoking Status: Never smoker alcohol intake: never substance use type: does not use ROS ROS ED Constitutional Constitutional ED: Denies chills or fever(s) Eyes Eyes: Denies blurry vision or change in vision ENT ENT ED: Denies rhinorrhea or sore throat Cardiovascular Cardiovascular: Denies chest pain or palpitations Respiratory/Chest Respiratory/Chest: Reports cough; Denies dyspnea Gastrointestinal Gastrointestinal: Reports diarrhea, nausea and vomiting Genitourinary Genitourinary ED: Denies dysuria or hematuria Musculoskeletal Musculoskeletal: Denies back pain or neck pain Integumentary Denies abscess or rash Neurologic Neurologic: Denies headache(s) or weakness Allergic/Immunologic Allergic/Immunologic ED: Denies mouth swelling or urticaria EXAM Physical Exam Const Vital Signs: 04/04/21 09:57 Temperature 97.8 F Temperature Source Temporal Pulse Rate 75 Respiratory Rate 20 H Blood Pressure 140/90 H Blood Pressure Mean 106 Pulse Ox 99 Oxygen Delivery Method Room Air Positive well nourished and well developed General Appearance ED: well developed HEENT Reports moist mucous membranes Neck supple and no JVD Resp normal respiratory effort and clear to auscultation bilaterally Cardio regular rate, regular rhythm and no murmurs GI normal to inspection, nondistended, normoactive bowel sounds Palpation: soft and tender; Negative for guarding or rebound tenderness present Extremity normal to inspection General Extremety ED: Negative for edema or tenderness General Extremity: Negative for edema Neuro oriented x3, CN's II-XII intact bilaterally and no sensory deficits noted Sensorium / Orientation: alert Motor Exam: strength 5/5 throughout Psych mental status grossly normal Skin no rashes or lesions noted MDM MDM MDM Narrative Medical decision making narrative: Patient was given IV fluids and Zofran here. CBC shows a slight leukocytosis of 12.3. Comprehensive metabolic profile was within normal limits. Lipase was normal. Serum hCG was negative. Urinalysis does not show any evidence of urinary tract infection. Patient was feeling better on reevaluation. Patient was advised of her findings. Patient was instructed to start with a liquid and bland diet and then advance to a regular diet as her symptoms improved. Patient was instructed to follow-up with her primary care physician in 3 to 5 days. Patient understood and was agreeable wi th the plan. All questions were answered. Lab Data Labs: Laboratory Results - last 24 hr 04/04/21 04/04/21 04/04/21 11:20 11:20 11:20 WBC 12.3 H RBC 4.56 Hgb 13.9 Hct 41.2 MCV 90.4 MCH 30.5 MCHC 33.7 RDW Std Deviation 38.1 RDW Coeff of Ziggy 11.5 L Plt Count 288 MPV 8.2 Immature Gran % (Auto) 0.900 Neut % (Auto) 84.4 H Lymph % (Auto) 5.[address] [place] % (Auto) 8.6 Eos % (Auto) 0.2 Baso % (Auto) 0.3 Absolute Neuts (auto) 10.4 H Absolute Lymphs (auto) 0.69 L Nucleated RBC % 0 Sodium 138 Potassium 3.5 Chloride 100 Carbon Dioxide 29.0 Anion Gap 9 BUN 15 Creatinine 0.94 Estim Creat Clear Calc 75.17 Est GFR (MDRD) Af Amer 87 Est GFR (MDRD) Non-Af 72 BUN/Creatinine Ratio 16.0 Glucose 113 H Calcium 9.0 Total Bilirubin 0.60 AST 10 L ALT 18 Alkaline Phosphatase 78 Total Protein 7.9 Albumin 3.4 Globulin 4.5 H Albumin/Globulin Ratio 0.8 L Lipase 91 Serum , Qual NEGATIVE Urine Color Urine Clarity Urine pH Ur Specific [place] Urine Protein Urine Glucose (UA) Urine Ketones Urine Occult Blood Urine Nitrite Urine Bilirubin Urine Urobilinogen Ur Leukocyte Esterase Urine RBC Urine WBC Ur Squamous Epith Cells Amorphous Sediment Urine Bacteria Urine Mucus 04/04/21 12:10 WBC RBC Hgb Hct MCV MCH MCHC RDW Std Deviation RDW Coeff of Ziggy Plt Count MPV Immature Gran % (Auto) Neut % (Auto) Lymph % (Auto) [place] % (Auto) Eos % (Auto) Baso % (Auto) Absolute Neuts (auto) Absolute Lymphs (auto) Nucleated RBC % Sodium Potassium Chloride Carbon Dioxide Anion Gap BUN Creatinine Estim Creat Clear Calc Est GFR (MDRD) Af Amer Est GFR (MDRD) Non-Af BUN/Creatinine Ratio Glucose Calcium Total Bilirubin AST ALT Alkaline Phosphatase Total Protein Albumin Globulin Albumin/Globulin Ratio Lipase Serum , Qual Urine Color Yellow Urine Clarity Cloudy Urine pH 8.0 Ur Specific [place] 1.015 Urine Protein 15 H Urine Glucose (UA) Normal Urine Ketones 50 H Urine Occult Blood 25 H Urine Nitrite Negative Urine Bilirubin Negative Urine Urobilinogen Normal Ur Leukocyte Esterase 25 H Urine RBC 0-5 SEEN Urine WBC 0-5 SEEN Ur Squamous Epith Cells 0-5 SEEN Amorphous Sediment 2+ Urine Bacteria 1+ Urine Mucus 0 SEEN Discharge Plan Triage Chief Complaint: Nausea/Vomiting/Diarrhea ED Provider: Bradley Reilly Dx/Rx/DC Orders Clinical Impression: Nausea, vomiting, and diarrhea Instructions: ED Gastroenteritis, Viral (Adult), ED Vomiting and Diarrhea ... Prescriptions: No Action albuterol sulfate [Ventolin HFA] 1 INHALER inhaler 1 - 2 puff inhalation Q4H PRN PRN (Reason: Shortness Of Breath) RF: 0 fexofenadine [Krissy Allergy] 180 MG tablet 180 mg PO PRN PRN (Reason: Allergies) RF: 0 fluticasone propionate 1 SPRAY spray,suspension 1 spray NASAL DAILY RF: 0 propranolol 60 mg capsule,extended release 24 hr 60 mg PO DAILY RF: 0 Asmanex Twisthaler 220 mcg/ actuation (30) aerosol powdr breath activated 1 inh INHALATION DAILY RF: 0 medroxyprogesterone 10 mg tablet 10 mg PO DAILY RF: 0 Primary Care Provider: Murray Chisholm Referrals: Murray Chisholm MD [Primary Care Provider] - 3-5 Days Disposition Disposition: Home, Self Care
[2021-04-04] MEDS: 0.9% Normal Saline 1,000 ML 1000 ML IV (11:20)
[2021-04-04 11:40] LABS: Absolute Lymphocyte Count 0.69 X10^3/uL (0.83-4.51); Absolute Neutrophil Count 10.4 X10^3/uL (2.0-7.7); Basophil# 0.04 X10^3/uL; Basophil% 0.3 % (0-1); Eosinophil# 0.03 X10^3/uL; Eosinophils% 0.2 % (0-5); Hematocrit 41.2 % (37-47); Hemoglobin 13.9 g/dL (12.0-15.0); Lymphocyte # 0.69 X10^3/ul (0.83-4.51); Lymphocyte % 5.6 % (19-41); Mean Corp Hgb Conc 33.7 g/dL (32-36); Mean Corpuscular Hgb 30.5 pg (27.0-32.0); Mean Corpuscular Volume 90.4 fL (81-99); Mean Platelet Vol. 8.2 fl (6.2-12.0); Monocyte# 1.05 X10^3/uL; Monocyte% 8.6 % (0-10); NRBC Flagged by Analyzer 0 % (0-5); Neutrophil # 10.35 X10^3/uL (2.7-7.7); Neutrophil % 84.4 % (47-70); Platelet Count 288 K/mm3 (150-450); RBC Distribution Width CV 11.5 % (11.6-14.6); RBC Distribution Width SD 38.1 fl (35.1-43.9); Red Blood Count 4.56 M/mm3 (4.2-5.4); White Blood Count 12.3 K/mm3 (4.4-11.0)
[2021-04-04 11:56] LABS: Internal QC Validated? YES +Cl - CLEAR BKGD
[2021-04-04 11:57] LABS: Pregnancy, Serum, hCG Quali. NEGATIVE Negative
[2021-04-04 12:00] LABS: ALB/GLOB Ratio 0.8 RATIO (0.9-2.4); AST(SGOT) 10 U/L (15-37); Alanine Aminotransfer ALT/SGPT 18 U/L (13-56); Albumin, Serum 3.4 g/dL (3.2-5.0); Alkaline Phosphatase 78 U/L (45-117); Anion Gap 9 (5-15); BUN 15 mg/dL (7-18); Chloride 100 mmol/L (98-107); Creatinine, Serum 0.94 mg/dL (0.55-1.02); EST Glomerular Filtration Rate 72 mL/min (>60); Est Glom Filt Rate - Afr Amer 87 mL/min (>60); Estimated Creatinine Clearance 75.17 ml/min; Globulin 4.5 g/dL (2.2-4.2); Glucose 113 mg/dL (74-106); Lipase 91 U/L (73-393); Potassium 3.5 mmol/L (3.5-5.1); Protein, Total 7.9 g/dL (6.4-8.2); Sodium Level 138 mmol/L (136-145)
[2021-04-04 12:30] LABS: Mucous, Urine 0 SEEN /hpf (<or=2+)
[2021-04-04 12:32] LABS: Color, Urine Yellow (Yellow); Glucose, Dipstick Normal (Normal); Ketone-Dipstick 50 mg/dl (Negative); Leukocyte Esterase-Dipstick 25 /ul (Negative); Nitrite-Dipstick Negative (Negative); Occult Blood-Urine 25 /ul (Negative); Protein-Dipstick 15 mg/dl (Negative); Specific Gravity, Urine 1.015 (1.002-1.030); Urine Bilirubin Dipstick Negative (Negative); Urine Clarity Cloudy (Clear); Urine Urobilinogen Normal (Normal)
[2021-04-04 12:41] LABS: Amorphous Sediment 2+; Bacteria 1+ /hpf (None Seen); Red Blood Cells-Urine 0-5 SEEN /hpf (0-5); Squamous Epithelial Cells - UA 0-5 SEEN /hpf (5-10); White Blood Cells 0-5 SEEN /hpf (0-5)
[2021-04-04 13:53] VITALS: BP 103/53; PULSE 81; RESP 16; O2SAT 99
--- NOTE | 2021-04-04 13:53 | ED.RN ---
THIS NURSE REVIEWED D/C INSTRUCTIONS WITH PT AND VISITOR. PT VERBALIZED UNDERSTANDING OF INSTRUCTIONS. IV D/C. IV CATHETER INTACT. PT TOLERATED WELL. PT DENIES FURTHER NEEDS OR QUESTIONS AT THIS TIME. PT AMBULATES FROM ROOM ON OWN WITHOUT ASSISTANCE FROM STAFF
== END 2021-04-04 13:54 | disposition home or self-care (01) ==
PROVIDERS: Emergency Provider Emergency Medicine; PCP Family Medicine
DX: R11.2 Nausea with vomiting, unspecified (principal); R19.7 Diarrhea, unspecified
CPT/HCPCS: 80053; 81001; 83690; 84703; 85025; 99285; J2405

== ENCOUNTER 2021-05-15 12:13 | Emergency (ER) | payer OTHER, SELFPAY ==
[2021-05-15 12:14] VITALS: BP 135/86; PULSE 121; RESP 22; O2SAT 98
[2021-05-15 12:15] VITALS: BP 135/86; PULSE 118; RESP 16; TEMP 36.5; O2SAT 99; BMI 33.2
--- NOTE | 2021-05-15 12:39 | CT_ITS ---
STUDY: CT BRAIN WITHOUT CONTRAST REASON FOR EXAM: Female, 36 years old. New onset tonic-clonic seizure RADIATION DOSAGE (If Supplied By Facility): CTDIvol = ( 44.99 ) mGy, DLP = ( 802.10 ) mGycm TECHNIQUE: Transaxial CT imaging of the brain was performed without administration of intravenous contrast material. Individualized dose optimization techniques were used for this CT. COMPARISON: Comparison is made with prior study dated 02/21/2021. FINDINGS: Normal soft tissue structures. Normal calvarium. Normal size ventricles and extra-axial spaces for the patient''s age. Normal white matter tracts of the cerebral hemispheres. Normal basal ganglia and thalami. Normal brainstem. Normal cerebellum. There is no intracranial hemorrhage. There are no findings of an acute ischemic infarction. Normal visualized paranasal sinuses. CT/Brain/Head without Contrast IMPRESSION: Normal unenhanced CT scan of the brain. Electronically Signed: Julius Thompson MD at 13:09 EST , Service support ,
--- NOTE | 2021-05-15 12:46 | EDS_ITS ---
HPI History of Present Illness Chief Complaint: Neuro S/Sx Detail of Chief Complaint: Loss of consciousness due to tonic-clonic seizure Informant: patient and EMS Onset/Context/Timing Onset: Today and Hours Context: Sudden Onset Timing: Intermittent Quality: Tonic-clonic seizure Current Severity: Presently has no symptoms Maximum Severity: Witnessed tonic-clonic seizure Worsened by: Nothing Relieved by: Nothing Associated Symptoms Associated Symptoms: Nothing Narrative Narrative: Patient is a 36-year-old woman who has history of migraine headaches. 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 She is on leave because of chronic headaches. She presents after her mother witnessed a generalized tonic-clonic seizure that lasted 30 seconds. She was postictal. She has new recall. Presently she denies any symptoms. She does see a neurologist through the [facility] for her migraine headaches. Prior similar symptoms: No Recent Illness/Hospitalization: Yes [facility] Medical History Asthma Migraines Home Medications albuterol sulfate [Ventolin HFA] 1 - 2 puff INHALATION Q4H PRN PRN 10/15/13 [History Last Taken Unknown] fexofenadine [Krissy Allergy] 180 mg PO PRN PRN 01/28/17 [History Last Taken 03/03/17 08:00] fluticasone propionate 1 spray NASAL DAILY 01/28/17 [History Last Taken 03/03/17 08:00] mometasone [Asmanex Twisthaler] 1 inh INHALATION DAILY 12/08/20 [History Last Taken Unknown] medroxyprogesterone 10 mg PO DAILY 02/21/21 [History Last Taken Unknown] rimegepant [Nurtec ODT] 75 mg PO DAILY PRN 05/15/21 [History Last Taken Unknown] Allergy/AdvReac Type Severity Reaction Status Date / Time latex Allergy Swelling Verified 04/04/21 10:02 Surgical History Hx of appendectomy Social History household members: spouse Smoking Status: Never smoker alcohol intake: never substance use type: does not use ROS ROS ED Constitutional Constitutional ED: Reports other Details: There was no incontinence of urine or stool. She states she did not bite her tongue. ; Denies chills, fever(s), subjective, sweats or weight loss Eyes Eyes: Denies blurry vision, change in vision or diplopia ENT ENT ED: Denies ear pain, rhinorrhea or sore throat Cardiovascular Cardiovascular: Denies chest pain, orthopnea, palpitations, paroxysmal nocturnal dyspnea or racing heartbeat Respiratory/Chest Respiratory/Chest: Denies cough, dyspnea, dyspnea on exertion, orthopnea, paroxysmal nocturnal dyspnea or sputum Gastrointestinal Gastrointestinal: Denies abdominal pain, constipation, diarrhea, nausea or vomiting Genitourinary Genitourinary ED: Denies dysuria, hematuria or urinary frequency Musculoskeletal Musculoskeletal: Denies arthralgias, myalgias or neck pain Integumentary Denies rash Neurologic Neurologic: Denies headache(s), paresthesias or weakness Psychiatric Psychiatric: Denies depression Endocrine Endocrinology: Denies polydipsia, polyphagia or polyuria EXAM Physical Exam Const Vital Signs: 05/15/21 12:14 05/15/21 12:15 05/15/21 14:17 Temperature 97.7 F L Temperature Source Temporal Pulse Rate 121 H 118 H 111 H Respiratory Rate 22 H 16 15 Blood Pressure 135/86 H 135/86 H 113/86 H Blood Pressure Mean 102 102 95 Pulse Ox 98 99 96 Oxygen Delivery Method Room Air Room Air Room Air Positive well nourished, well developed and obese General Appearance ED: well developed and NAD; Negative for cyanotic, diaphoretic or pallor Nutritional Appearance: obese HEENT Reports TM's clear and moist mucous membranes HEENT Narrative: Nares patent. Uvula midline. There is no erythema or exam the posterior pharynx. Negative for trauma or tenderness Tympanic Membrane ED: Yes TM's clear Eyes PERRL and EOMs intact bilaterally Eyes Narrative: There is no nystagmus. There is no APD. General Eye ED: Negative for pale conjunctiva or scleral icterus Neck no lymphadenopathy, supple and no JVD Chest Wall inspection of chest normal and palpation of chest normal Resp normal respiratory effort and clear to auscultation bilaterally Cardio regular rhythm, S1 normal heart sound, S2 normal heart sound and no murmurs Rate: tachycardic GI normal to inspection, nondistended, normoactive bowel sounds, non-tender and non-distended Auscultation: normoactive bowel sounds Palpation: soft Back/Spine no CVA tenderness Cervical Spine: Negative for cervical spine tenderness Thoracic Spine / Upper Back: Negative for thoracic spinal tenderness or paraspinal muscle tenderness Extremity normal to inspection General Extremety ED: Negative for edema or tenderness General Extremity: Negative for edema Neuro oriented x3, CN's II-XII intact bilaterally and no sensory deficits noted Sensorium / Orientation: alert Motor Exam: strength 5/5 throughout Psych mental status grossly normal Skin no rashes or lesions noted, no wounds and skin turgor normal General Skin Exam: Negative for jaundice or pallor MDM MDM MDM Narrative Medical decision making narrative: With history of new onset seizure will obtain imaging of the brain. Talk screen was obtained. CBC to assess white count. Basic Angélica panel to rule out electrolyte abnormality. Lab Data Attestation: I reviewed the patient's lab results. Lab results narrative: CBC and differential are unremarkable. Basic metabolic panel is remarkable for mild hypokalemia, 3.3. Labs: Laboratory Results - last 24 hr 05/15/21 05/15/21 05/15/21 12:20 12:20 13:50 WBC 9.1 RBC 4.62 Hgb 14.0 Hct 41.7 MCV 90.3 MCH 30.3 MCHC 33.6 RDW Std Deviation 38.9 RDW Coeff of Ziggy 11.8 Plt Count 375 MPV 8.4 Immature Gran % (Auto) 0.800 Neut % (Auto) 64.3 Lymph % (Auto) 21.6 [place] % (Auto) 10.6 H Eos % (Auto) 1.8 Baso % (Auto) 0.9 Absolute Neuts (auto) 5.9 Absolute Lymphs (auto) 1.97 Nucleated RBC % 0 Sodium 137 Potassium 3.3 L Chloride 101 Carbon Dioxide 27.0 Anion Gap 9 BUN 15 Creatinine 0.87 Estim Creat Clear Calc 81.21 Est GFR (MDRD) Af Amer 96 Est GFR (MDRD) Non-Af 79 BUN/Creatinine Ratio 17.3 Glucose 101 Calcium 9.0 Total Bilirubin 0.70 AST 9 L ALT 15 Alkaline Phosphatase 90 Total Protein 8.1 Albumin 3.4 Globulin 4.7 H Albumin/Globulin Ratio 0.7 L Urine Opiates Screen NEGATIVE Urine Methadone Screen NEGATIVE Ur Barbiturates Screen NEGATIVE Ur Phencyclidine Scrn NEGATIVE Ur Amphetamines Screen NEGATIVE U Methamphetamin-MDMA NEGATIVE U Benzodiazepines Scrn NEGATIVE Urine Cocaine Screen NEGATIVE U Cannabinoids Screen NEGATIVE Ur Drug Screen Comment Radiography Diagnostic Testing: Clinical Impression(s) from Imaging Studies Brain CT 05/15/21 12:39 IMPRESSION: Normal unenhanced CT scan of the brain. Electronically Signed: Julius Thompson MD at 13:09 EST , Service support , Discharge Plan Triage Chief Complaint: Neuro S/Sx ED Provider: Chaz Calles Dx/Rx/DC Orders Clinical Impression: New onset seizure Instructions: ED Seizure New Onset Unknown ... Prescriptions: No Action albuterol sulfate [Ventolin HFA] 1 INHALER inhaler 1 - 2 puff inhalation Q4H PRN PRN (Reason: Shortness Of Breath) RF: 0 fexofenadine [Krissy Allergy] 180 MG tablet 180 mg PO PRN PRN (Reason: Allergies) RF: 0 fluticasone propionate 1 SPRAY spray,suspension 1 spray NASAL DAILY RF: 0 Asmanex Twisthaler 220 mcg/ actuation (30) aerosol powdr breath activated 1 inh INHALATION DAILY RF: 0 medroxyprogesterone 10 mg tablet 10 mg PO DAILY RF: 0 Nurtec ODT 75 mg tablet,disintegrating 75 mg PO DAILY PRN (Reason: migraine) RF: 0 Primary Care Provider: Murray Chisholm Referrals: Murray Chisholm MD [Primary Care Provider] - Activity Restrictions/Additional Instructions: 1. No driving until you are seen by your neurologist and cleared to drive 2. You had a generalized seizure and will need an outpatient work-up contact your neurologist Disposition Disposition: Home, Self Care
[2021-05-15 12:57] LABS: Absolute Lymphocyte Count 1.97 X10^3/uL (0.83-4.51); Absolute Neutrophil Count 5.9 X10^3/uL (2.0-7.7); Basophil# 0.08 X10^3/uL; Basophil% 0.9 % (0-1); Eosinophil# 0.16 X10^3/uL; Eosinophils% 1.8 % (0-5); Hematocrit 41.7 % (37-47); Lymphocyte # 1.97 X10^3/ul (0.83-4.51); Lymphocyte % 21.6 % (19-41); Mean Corp Hgb Conc 33.6 g/dL (32-36); Mean Corpuscular Hgb 30.3 pg (27.0-32.0); Mean Corpuscular Volume 90.3 fL (81-99); Mean Platelet Vol. 8.4 fl (6.2-12.0); Monocyte# 0.97 X10^3/uL; Monocyte% 10.6 % (0-10); NRBC Flagged by Analyzer 0 % (0-5); Neutrophil # 5.89 X10^3/uL (2.7-7.7); Neutrophil % 64.3 % (47-70); Platelet Count 375 K/mm3 (150-450); RBC Distribution Width CV 11.8 % (11.6-14.6); RBC Distribution Width SD 38.9 fl (35.1-43.9); Red Blood Count 4.62 M/mm3 (4.2-5.4); White Blood Count 9.1 K/mm3 (4.4-11.0)
[2021-05-15 13:10] LABS: ALB/GLOB Ratio 0.7 RATIO (0.9-2.4); AST(SGOT) 9 U/L (15-37); Alanine Aminotransfer ALT/SGPT 15 U/L (13-56); Albumin, Serum 3.4 g/dL (3.2-5.0); Alkaline Phosphatase 90 U/L (45-117); Anion Gap 9 (5-15); BUN 15 mg/dL (7-18); BUN/Creat Ratio 17.3 RATIO (10-20); Chloride 101 mmol/L (98-107); Creatinine, Serum 0.87 mg/dL (0.55-1.02); EST Glomerular Filtration Rate 79 mL/min (>60); Est Glom Filt Rate - Afr Amer 96 mL/min (>60); Estimated Creatinine Clearance 81.21 ml/min; Globulin 4.7 g/dL (2.2-4.2); Glucose 101 mg/dL (74-106); Potassium 3.3 mmol/L (3.5-5.1); Protein, Total 8.1 g/dL (6.4-8.2); Sodium Level 137 mmol/L (136-145)
[2021-05-15 14:14] LABS: Amphetamine Urine VISTA NEGATIVE (<1000 ng/mL); Barbiturate Urine VISTA NEGATIVE (< 200 ng/mL); Benzodiazepine Urine VISTA NEGATIVE (< 200 ng/mL); Cocaine Urine VISTA NEGATIVE (< 300 ng/mL); Ecstacy Urine VISTA NEGATIVE (< 500 ng/mL); Methadone Urine VISTA NEGATIVE (< 300 ng/mL); PCP Urine VISTA NEGATIVE (< 25 ng/mL); THC Urine VISTA NEGATIVE (< 50 ng/mL); Vista UDS pH Range 6
[2021-05-15 14:17] VITALS: BP 113/86; PULSE 111; RESP 15; O2SAT 96
[2021-05-15 14:55] VITALS: BP 120/80; PULSE 111; RESP 17; O2SAT 98; BMI 33.2
== END 2021-05-15 14:56 | disposition home or self-care (01) ==
PROVIDERS: Emergency Provider Emergency Medicine; PCP Family Medicine
DX: R56.9 Unspecified convulsions (principal); G43.909 Migraine, unspecified, not intractable, without status migrainosus; J45.909 Unspecified asthma, uncomplicated; E66.9 Obesity, unspecified; Z68.32 Body mass index [BMI] 32.0-32.9, adult; Z79.51 Long term (current) use of inhaled steroids
CPT/HCPCS: 70450; 80053; 80307; 85025; 99284; A4216

== ENCOUNTER 2023-07-27 22:04 | Emergency (ER) | payer OTHER, SELFPAY ==
[2023-07-27 22:05] VITALS: BP 113/71; PULSE 66; RESP 16; TEMP 36.6; O2SAT 98
--- NOTE | 2023-07-27 22:30 | ED.VIS.GI ---
HPI HPI - GI History of Present Illness Chief Complaint: Abd Pain Informant: patient and spouse/S.O. Abdominal Pain/Flank Pain Onset: Today Context: Sudden Onset Timing: Continuous Quality: Sharp Location: RLQ and LLQ Worsened by: Movement Relieved by: Nothing Nausea/Vomiting/Emesis GI Symptom: Negative for Nausea or Vomiting Diarrhea/Melena/Hematochezia GI Symptom: Negative for Diarrhea, Melena or Hematochezia Associated Symptoms Associated Symptoms: Negative for Dysuria, Frequency or Hematuria Narrative Narrative: Patient presents with abdominal pain that began today. Patient states she had surgery by Dr. Luisana Hill for a uterine ablation and tubal ligation. Patient states that her pain began approximately 2 hours prior to arrival. Patient states it began rather suddenly. Patient describes it as sharp. Patient states it is mainly over the lower abdomen. Patient states it is worse with movement. Patient states nothing makes it better. Patient denies any nausea or vomiting. Patient denies any diarrhea, melena, or hematochezia. Patient denies any urinary complaints. [facility] Medical History (Updated 07/28/23 @ 02:12 by Marga Abdi) Asthma Hydrocephalus Migraines Sarcoidosis Home Medications albuterol sulfate 90 mcg/actuation aerosol inhaler (Ventolin HFA) 1 - 2 puff inhalation Q4H PRN PRN Shortness Of Breath 10/15/13 [History Last Taken Unknown] fexofenadine 180 mg tablet (Krissy Allergy) 180 mg PO PRN PRN Allergies 01/28/17 [History Last Taken 03/03/17 08:00] fluticasone propionate 50 mcg/actuation nasal spray,suspension 1 spray DAILY allergies 01/28/17 [History Last Taken 03/03/17 08:00] mometasone 220 mcg/actuation(30 doses) breath activated powder inhaler (Asmanex Twisthaler) 1 inh inhalation DAILY 12/08/20 [History Last Taken Unknown] rimegepant 75 mg disintegrating tablet (Nurtec ODT) 75 mg PO DAILY PRN migraine 05/15/21 [History Last Taken Unknown] acetazolamide 250 mg tablet 250 mg PO Q12H 07/28/23 [History Last Taken Unknown] adalimumab 40 mg/0.4 mL subcutaneous pen kit (Humira(CF) Pen) 40 mg subcut Q14D 07/28/23 [History Last Taken Unknown] adalimumab-bwwd 40 mg/0.4 mL subcutaneous auto-injector (Hadlima(CF) PushTouch) 40 mg subcut Q14D 07/28/23 [History Last Taken Unknown] folic acid 1 mg tablet 1 mg PO DAILY 07/28/23 [History Last Taken Unknown] furosemide 40 mg tablet 40 mg PO PRN PRN dependant edema 07/28/23 [History Last Taken Unknown] methotrexate sodium 25 mg/mL injection solution 25 mg IM .q7day 07/28/23 [History Last Taken Unknown] mometasone 220 mcg/actuation(120 doses)breath activated powder inhaler (Asmanex Twisthaler) 220 mcg inhalation Q12H 07/28/23 [History Last Taken Unknown] phentermine 37.5 mg capsule 37.5 mg PO DAILY 07/28/23 [History Last Taken Unknown] potassium chloride 20 mEq tablet,extended release(part/cryst) (Klor-Con M) 40 meq PO DAILY 07/28/23 [History Last Taken Unknown] sulfamethoxazole 800 mg-trimethoprim 160 mg tablet 1 tab PO DAILY 07/28/23 [History Last Taken Unknown] Allergy/AdvReac Type Severity Reaction Status Date / Time latex Allergy Swelling Verified 07/27/23 22:07 Surgical History Hx of appendectomy Hx of tubal ligation S/P endometrial ablation Social History household members: spouse Smoking Status: Never smoker alcohol intake: never substance use type: does not use ROS ROS ED Constitutional Constitutional ED: Denies chills or fever(s) Eyes Eyes: Denies blurry vision or change in vision ENT ENT ED: Denies rhinorrhea or sore throat Cardiovascular Cardiovascular: Denies chest pain or palpitations Respiratory/Chest Respiratory/Chest: Denies cough or dyspnea Gastrointestinal Gastrointestinal: Reports abdominal pain; Denies nausea or vomiting Genitourinary Genitourinary ED: Denies dysuria or hematuria Musculoskeletal Musculoskeletal: Reports back pain; Denies neck pain Integumentary Denies abscess or rash Neurologic Neurologic: Denies headache(s) or weakness Allergic/Immunologic Allergic/Immunologic ED: Denies mouth swelling or urticaria EXAM Physical Exam Const Vital Signs: 07/27/23 22:05 07/28/23 01:00 Temperature 98 F Temperature Source Temporal Pulse Rate 66 89 Respiratory Rate 16 16 Blood Pressure 113/71 150/80 H Blood Pressure Mean 85 103 Pulse Ox 98 95 Oxygen Delivery Method Room Air Room Air Positive well nourished and well developed General Appearance ED: well developed HEENT Reports moist mucous membranes Neck supple and no JVD Resp normal respiratory effort and clear to auscultation bilaterally Cardio regular rate and regular rhythm GI non-distended Palpation: tender LLQ, RLQ and suprapubic and guarding Extremity full ROM General Extremety ED: Negative for edema or tenderness General Extremity: Negative for edema Neuro CN's II-XII intact bilaterally, moves all extremities and no sensory deficits noted Sensorium / Orientation: alert Motor Exam: strength 5/5 throughout Psych Mood & Affect: anxious MDM MDM MDM Narrative Medical decision making narrative: Differential diagnosis includes perforation, postoperative bleeding, bowel obstruction, urinary tract infection, and postoperative pain. CT scan of the abdomen pelvis will be obtained to assess for perforation and obstruction. CBC will be obtained to assess for leukocytosis and anemia. Basic metabolic profile will be obtained to assess for electrolyte abnormality and renal function. Urinalysis will be obtained to assess for urinary tract infection and hematuria. Lab Data Attestation: I reviewed the patient's lab results. Lab results narrative: CBC was reviewed. There is a leukocytosis of 16.2. Hemoglobin is stable at 14.8 and hematocrit was 43.3. Lites were normal. Basic metabolic profile was reviewed and was essentially within normal limits. Serum hCG was reviewed and was negative. Labs: Laboratory Results - last 24 hr 07/27/23 07/28/23 07/28/23 23:19 00:09 00:16 WBC 16.2 H RBC 4.59 Hgb 14.8 Hct 43.3 MCV 94.3 MCH 32.2 H MCHC 34.2 RDW Std Deviation 46.0 H RDW Coeff of Ziggy 13.3 Plt Count 306 MPV 8.7 Immature Gran % (Auto) 0.600 Neut % (Auto) 84.7 H Lymph % (Auto) 8.1 L [place] % (Auto) 6.2 Eos % (Auto) 0.0 Baso % (Auto) 0.4 Absolute Neuts (auto) 13.8 H Absolute Lymphs (auto) 1.32 Nucleated RBC % 0 Sodium 141 Potassium 3.5 Chloride 114 H Carbon Dioxide 21.0 Anion Gap 6 BUN 10 Creatinine 0.76 Estim Creat Clear Calc 111.17 Est GFR (MDRD) Af Amer 110 Est GFR (MDRD) Non-Af 91 BUN/Creatinine Ratio 13.1 Glucose 119 H Calcium 9.0 Serum , Qual NEGATIVE Urine Color Yellow Urine Clarity Sl. Cloudy Urine pH 7.0 Ur Specific [place] 1.010 Urine Protein Negative Urine Glucose (UA) Normal Urine Ketones Negative Urine Occult Blood 150 H Urine Nitrite Negative Urine Bilirubin Negative Urine Urobilinogen Normal Ur Leukocyte Esterase Negative Urine RBC 10-25 SEEN Urine WBC 0 SEEN Ur Squamous Epith Cells 5-10 SEEN Amorphous Sediment 2+ URATE Urine Bacteria 2+ Hyaline Casts 0 SEEN Fine Granular Casts 0 SEEN Coarse Granular Casts 0 SEEN Waxy Casts Not Reportable Urine Mucus 0 SEEN Blood Type B NEGATIVE Antibody Screen NEGATIVE Radiography Diagnostic Testing: Clinical Impression(s) from Imaging Studies Abdomen/Pelvis CT 07/27/23 22:53 IMPRESSION: 1. Postsurgical changes anterior abdominal wall with some free air. Mildly hyperdense fluid in the abdomen suggesting hemorrhage. Flattened IVC suspicious for low intravascular volume. Correlate with HTH. 2. Myometrial defect extending from the endometrial stripe to the uterine serosal surface. No surrounding hematoma. 3. Sliding hiatal hernia. N.B. : The above Results were Read Back by Thong Willard DO to Bradley Reilly DO, and understanding confirmed on 07/27/2023 23:57:49 (ET). Electronically Signed: Thong Willard DO at 23:59 EST Reading Location ID and State: [facility] / [place] Tel , Service support , ADDENDUM: 07/28/23 0006 IMPRESSION: 1. Postsurgical changes anterior abdominal wall with some free air. Mildly hyperdense fluid in the abdomen suggesting hemorrhage. Flattened IVC suspicious for low intravascular volume. Correlate with HTH. 2. Myometrial defect extending from the endometrial stripe to the uterine serosal surface. No surrounding hematoma. 3. Sliding hiatal hernia. N.B. : The above Results were Read Back by Thong Willard DO to Bradley Reilly DO, and understanding confirmed on 07/27/2023 23:57:49 (ET). Electronically Signed: Thong Willard DO at 23:59 EST , CT scan of the abdomen pelvis was obtained. There are some postsurgical changes in the anterior abdominal wall and some free air. There is some hyperdense fluid in the abdomen suggesting hemorrhage. There is also a myometrial defect extending from the endometrial stripe to the uterine serosal surface. There is no surrounding hematoma. This was interpreted by the radiologist was also independently reviewed by myself. Treatment and Re-Evaluation :: Patient was given IV fluids, morphine, and Zofran. Patient had minimal relief with this. Patient was given a dose of IV Dilaudid. Patient appeared more comfortable on reevaluation. Case was discussed with Dr. Kunz. She will admit the patient to her service. Patient is unsure if her insurance will cover admission here. Patient is requesting transfer to [facility] facility where her insurance will cover. I will attempt to contact [facility] transfer line for possible transfer. Case was discussed with Dr. Butler from [facility]. She accepted the patient to be transferred. Patient will be transferred to [facility]. Patient and understood and were agreeable with the plan. All questions were answered. Discharge Plan Triage Chief Complaint: Abd Pain ED Provider: Bradley Reilly Dx/Rx/DC Orders Clinical Impression: Acute postoperative abdominal pain, Postoperative hemorrhage Primary Care Provider: Murray Chisholm Disposition Disposition: Acute Care Hospital Discharge Location: [facility]
--- NOTE | 2023-07-27 22:53 | CT_ITS ---
INDICATION: Abdominal pain EXAMINATION: CT ABDOMEN AND PELVIS WITH CONTRAST - CT Abdomen And Pelvis W/ Contrast Injection TECHNIQUE: Helically acquired images were obtained of the abdomen and pelvis following IV contrast. A radiation dose optimization technique was used for this scan. IV Contrast dosage and agent: 100 mL [id number]-[id number]. Oral contrast: None. COMPARISON: None. FINDINGS: LOWER CHEST: Lung bases are clear. No cardiomegaly or pericardial effusion. Sliding sliding hiatal hernia. LIVER: Homogeneous. No focal mass. GALLBLADDER AND BILIARY TREE: No calcified gallstones. No gallbladder distension or wall edema. No intra- or extrahepatic biliary ductal dilation. PANCREAS: No focal cystic or solid mass. SPLEEN: Normal size without focal cystic or solid mass. ADRENAL GLANDS: No nodules. KIDNEYS, URETERS and BLADDER: Normal renal size and position. No mass. No hydronephrosis. Bladder is unremarkable. PERITONEUM: There is some mildly increased density fluid around the liver, right paracolic gutter and in the dependent portion of the pelvis likely representing blood. Trace fluid around the spleen. Intra-abdominal free air. BOWEL: No evidence of acute appendicitis. No abnormally distended bowel loops or air fluid levels. No wall thickening or mass. No focal inflammatory changes. LYMPH NODES: No enlarged mesenteric or retroperitoneal lymph nodes. VESSELS: Normal portal vein and abdominal aorta. IVC is collapsed suggesting low intravascular volume. REPRODUCTIVE ORGANS: Low density endometrial stripe extends through the uterine myometrium to the superior periphery of the uterine serosal surface. No focal fluid collection in this area. Normal CT appearance bilateral ovaries. ABDOMINAL WALL: Soft tissue gas and stranding density right, greater than left infraumbilical abdominal wall. BONES: Asymmetric right superior acetabular subchondral cystic change and mild subcortical cystic change right and left anterior femoral head neck junctions with loss of normal femoral head neck junction offset suggesting CAM type impingement. CT/Abdomen/Pelvis W IV Cont ONLY IMPRESSION: 1. Postsurgical changes anterior abdominal wall with some free air. Mildly hyperdense fluid in the abdomen suggesting hemorrhage. Flattened IVC suspicious for low intravascular volume. Correlate with HTH. 2. Myometrial defect extending from the endometrial stripe to the uterine serosal surface. No surrounding hematoma. 3. Sliding hiatal hernia. N.B. : The above Results were Read Back by Thong Willard DO to Bradley Reilly DO, and understanding confirmed on 07/27/2023 23:57:49 (ET). Electronically Signed: Thong Willard DO at 23:59 EST ,
[2023-07-27] MEDS: Morphine 4 MG/ML Syringe IV (23:04)
[2023-07-27] MEDS: Ondansetron 4 MG/2 ML Vial IV (23:04)
[2023-07-27] MEDS: 0.9% Normal Saline (1000mL) 1,000 ML 1000 ML IV (23:07)
[2023-07-27 23:08] VITALS: BMI 32.3
[2023-07-27 23:28] LABS: Absolute Lymphocyte Count 1.32 X10^3/uL (0.83-4.51); Absolute Neutrophil Count 13.8 X10^3/uL (2.0-7.7); Basophil# 0.06 X10^3/uL; Basophil% 0.4 % (0-1); Hematocrit 43.3 % (37-47); Hemoglobin 14.8 g/dL (12.0-15.0); Lymphocyte # 1.32 X10^3/ul (0.83-4.51); Lymphocyte % 8.1 % (19-41); Mean Corp Hgb Conc 34.2 g/dL (32-36); Mean Corpuscular Hgb 32.2 pg (27.0-32.0); Mean Corpuscular Volume 94.3 fL (81-99); Mean Platelet Vol. 8.7 fl (6.2-12.0); Monocyte% 6.2 % (0-10); NRBC Flagged by Analyzer 0 % (0-5); Neutrophil # 13.76 X10^3/uL (2.7-7.7); Neutrophil % 84.7 % (47-70); Platelet Count 306 K/mm3 (150-450); RBC Distribution Width CV 13.3 % (11.6-14.6); Red Blood Count 4.59 M/mm3 (4.2-5.4); White Blood Count 16.2 K/mm3 (4.4-11.0)
[2023-07-27 23:35] LABS: Internal QC Validated? YES +Cl - CLEAR BKGD; Pregnancy, Serum, hCG Quali. NEGATIVE Negative
[2023-07-27 23:42] LABS: Anion Gap 6 (5-15); BUN 10 mg/dL (7-18); BUN/Creat Ratio 13.1 RATIO (10-20); Chloride 114 mmol/L (98-107); Creatinine, Serum 0.76 mg/dL (0.55-1.02); EST Glomerular Filtration Rate 91 mL/min (>60); Est Glom Filt Rate - Afr Amer 110 mL/min (>60); Estimated Creatinine Clearance 111.17 ml/min; Glucose 119 mg/dL (74-106); Potassium 3.5 mmol/L (3.5-5.1); Sodium Level 141 mmol/L (136-145)
[2023-07-28 00:25] LABS: Color, Urine Yellow (Yellow); Glucose, Dipstick Normal (Normal); Ketone-Dipstick Negative (Negative); Leukocyte Esterase-Dipstick Negative /ul (Negative); Mucous, Urine 0 SEEN /hpf (<or=2+); Nitrite-Dipstick Negative (Negative); Occult Blood-Urine 150 /ul (Negative); Protein-Dipstick Negative (Negative); Urine Bilirubin Dipstick Negative (Negative); Urine Clarity Sl. Cloudy (Clear); Urine Urobilinogen Normal (Normal); White Blood Cells 0 SEEN /hpf (0-5)
[2023-07-28] MEDS: HYDROmorphone 1 MG/ML Syringe 0.5 MG IV (00:35)
[2023-07-28 01:00] VITALS: BP 150/80; PULSE 89; RESP 16; O2SAT 95
[2023-07-28 01:08] LABS: Bacteria 2+ /hpf (None Seen); Coarse Granular Cast 0 SEEN /lpf (0-5 /lpf); Fine Granular Cast- Urine 0 SEEN /lpf (0-5); Hyaline Cast 0 SEEN /lpf (0-5); Red Blood Cells-Urine 10-25 SEEN /hpf (0-5); Squamous Epithelial Cells - UA 5-10 SEEN /hpf (5-10)
[2023-07-28 01:10] LABS: Amorphous Sediment 2+ URATE
--- NOTE | 2023-07-28 01:59 | PCM.HP.OB ---
HPI - General General Date of Admission: 07/28/23 Date of Service: 07/28/23 Chief Complaint: post op pain HPI Narrative YAO MCCARTHY, is a 38 F who presents with post operative pain. The patient states she had a laparoscopic bilateral salpingectomy with endometrial ablation with Dr. Hill on 07/27/23. That night she began having lower pelvic pain that she describes as labor pains. She also notices pain in her shoulder. She denies fevers, chills, lightheadedness, dizziness, chest pain, shortness of breath, palpitations, leg pain. Bleeding is not heavy per patient. She tolerated food after the surgery at home. She denies nausea or vomiting. She reports spontaneously voiding okay at home. She offers no complaints other than abdominal pain. [facility] Medical History (Updated 07/28/23 @ 01:[address] Bradley Reilly, ) Asthma Migraines Sarcoidosis Home Medications albuterol sulfate 90 mcg/actuation aerosol inhaler (Ventolin HFA) 1 - 2 puff inhalation Q4H PRN PRN Shortness Of Breath 10/15/13 [History Last Taken Unknown] fexofenadine 180 mg tablet (Krissy Allergy) 180 mg PO PRN PRN Allergies 01/28/17 [History Last Taken 03/03/17 08:00] fluticasone propionate 50 mcg/actuation nasal spray,suspension 1 spray DAILY allergies 01/28/17 [History Last Taken 03/03/17 08:00] mometasone 220 mcg/actuation(30 doses) breath activated powder inhaler (Asmanex Twisthaler) 1 inh inhalation DAILY 12/08/20 [History Last Taken Unknown] rimegepant 75 mg disintegrating tablet (Nurtec ODT) 75 mg PO DAILY PRN migraine 05/15/21 [History Last Taken Unknown] acetazolamide 250 mg tablet 250 mg PO Q12H 07/28/23 [History Last Taken Unknown] adalimumab 40 mg/0.4 mL subcutaneous pen kit (Humira(CF) Pen) 40 mg subcut Q14D 07/28/23 [History Last Taken Unknown] adalimumab-bwwd 40 mg/0.4 mL subcutaneous auto-injector (Hadlima(CF) PushTouch) 40 mg subcut Q14D 07/28/23 [History Last Taken Unknown] folic acid 1 mg tablet 1 mg PO DAILY 07/28/23 [History Last Taken Unknown] furosemide 40 mg tablet 40 mg PO PRN PRN dependant edema 07/28/23 [History Last Taken Unknown] methotrexate sodium 25 mg/mL injection solution 25 mg IM .q7day 07/28/23 [History Last Taken Unknown] mometasone 220 mcg/actuation(120 doses)breath activated powder inhaler (Asmanex Twisthaler) 220 mcg inhalation Q12H 07/28/23 [History Last Taken Unknown] phentermine 37.5 mg capsule 37.5 mg PO DAILY 07/28/23 [History Last Taken Unknown] potassium chloride 20 mEq tablet,extended release(part/cryst) (Klor-Con M) 40 meq PO DAILY 07/28/23 [History Last Taken Unknown] sulfamethoxazole 800 mg-trimethoprim 160 mg tablet 1 tab PO DAILY 07/28/23 [History Last Taken Unknown] Allergy/AdvReac Type Severity Reaction Status Date / Time latex Allergy Swelling Verified 07/27/23 22:07 Surgical History Hx of appendectomy Hx of tubal ligation S/P endometrial ablation Social History household members: spouse Smoking Status: Never smoker alcohol intake: never substance use type: does not use History Elective abortions Hx Para 0 Spontaneous abortions Hx # Term Pregnancies Ectopic pregnancies Hx # Pregnancies Multiple births # of living children Vital Signs Vital Signs Vital Signs: 07/27/23 22:05 07/28/23 01:00 Temperature 98 F Temperature Source Temporal Pulse Rate 66 89 Respiratory Rate 16 16 Blood Pressure 113/71 150/80 H Blood Pressure Mean 85 103 Pulse Ox 98 95 Oxygen Delivery Method Room Air Room Air Weight Weight: 194 lb 7.163 oz Body Mass Index (BMI) 32.3 Physical Exam Const alert and no apparent distress HEENT normocephalic Resp normal respiratory effort GI soft to palpation and non-distended GI Narrative: +diffuse tenderness but most tenderness in lower pelvis, no rebounding, no guarding, no rigidity, non acute, abdomen is soft Extremity normal to inspection and no calf tenderness Labs Labs Labs: Blood Type B NEGATIVE Antibody Screen NEGATIVE Hct 43.3 % (37-47) Hgb 14.8 g/dL (12.0-15.0) Rhogam given: Yes Assessment & Plan (1) Acute postoperative abdominal pain: PLAN: Patient is POD#1 s/p laparoscopic bilateral salpingectomy, hysteroscopy, endometrial ablation. She presents to the ER with abdominal pain. - Operative report reviewed - Abdomen is tender in the ER but not acute - Vital signs are stable and Hgb is 14. WBC is 16 but this is likely due to recent surgery - Given she is HDS and there are no peritoneal signs on exam, discussed CT scan findings most likely represent post operative changes - Recommend admission for observation and repeat CBC - Patient has concerns regarding her insurance and care at [facility]. Would be ER to ER transfer and this was discussed with ER provider
[2023-07-28 02:00] VITALS: BP 140/76; PULSE 80; RESP 14; O2SAT 100
[2023-07-28] MEDS: 0.9% Normal Saline (1000mL) 1,000 ML 125 ML IV (02:12)
[2023-07-28 03:00] VITALS: BP 139/84; PULSE 84; RESP 16; O2SAT 97
[2023-07-28 03:08] VITALS: BP 133/78; PULSE 88; RESP 16; TEMP 36.4; O2SAT 99
[2023-07-28] MEDS: HYDROmorphone 0.5 MG/0.5 ML SYRINGE IV (03:09)
[2023-07-28 04:00] VITALS: BP 138/79; PULSE 64; RESP 18; O2SAT 99
[2023-07-28 04:30] VITALS: BP 147/92; PULSE 93; RESP 12; TEMP 37; O2SAT 98
--- NOTE | 2023-07-28 04:32 | ED.RN ---
0429: I gave report to [facility] nurse Irene.
== END 2023-07-28 04:00 | disposition short-term general hospital (02) ==
LOC: ED 07-28 01:08 → MS3 07-28 02:13
PROVIDERS: Emergency Medicine; Emergency Provider Obstetrics & Gynecology; PCP Family Medicine; Visit Provider Obstetrics & Gynecology
DX: K91.841 Postprocedural hemorrhage of a digestive system organ or structure following other procedure (principal); G89.18 Other acute postprocedural pain; Z90.49 Acquired absence of other specified parts of digestive tract; Z98.51 Tubal ligation status
CPT/HCPCS: 74177; 80048; 81001; 84703; 85025; 86850; 86900; 86901; 96361; 96374; 96375; 96376; 99284; J7030; Q9967; A4216; J2405